=== PATIENT | male | born 1965 | race Two or more races ===

== ENCOUNTER → 2021-10-03 | Outpatient (CLI) | payer BC ==
[2014-10-06 13:31] VITALS: BP 168/89
[~2021-10-03] MED LIST: CYCL10TA19 PO; GEMF-24 PO; INDO50CA15 PO; LEVO200T5 PO; OXYC1TAB15 PO; SITA1TAB11 PO
[2021-10-03 09:29] LABS: BASO # 0.1 x10^3/uL (0.0-0.2); BASO % 1 % (0-3); EOS # 0.2 x10^3/uL (0.0-0.7); EOS % 3 % (0-3); HEMATOCRIT 51.8 % (39.0-53.0); HEMOGLOBIN 17.2 g/dL (13.0-17.5); LYMPH # 2.3 x10^3/uL (1.0-4.8); LYMPH % 27 % (24-48); MEAN CORPUSCULAR HEMOGLOBIN 28 pg (25-35); MEAN CORPUSCULAR HGB CONC 33 g/dL (31-37); MEAN CORPUSCULAR VOLUME 85 fL (79-100); MONO # 0.4 x10^3/uL (0.0-1.1); MONO % 5 % (0-9); NEUT # 5.6 x10^3uL (1.8-7.7); NEUT % 65 % (31-73); PLATELET COUNT 221 x10^3/uL (140-400); RED BLOOD COUNT 6.11 x10^6/uL (4.30-5.70); RED CELL DISTRIBUTION WIDTH 15.5 % (11.5-14.5); WHITE BLOOD COUNT 8.6 x10^3/uL (4.0-11.0)
[2021-10-03 09:32] LABS: ALBUMIN 4.2 g/dL (3.4-5.0); ALBUMIN/GLOBULIN RATIO 1.1 (1.0-1.7); CALCIUM 9.2 mg/dL (8.5-10.1); CREATININE 1.2 mg/dL (0.7-1.3); GFR 62.4; POTASSIUM 4.6 mmol/L (3.5-5.1); TOTAL BILIRUBIN 0.4 mg/dL (0.2-1.0)
--- NOTE | 2021-10-03 12:16 | RAD ---
INDICATION: Reason: RUQ PAIN X3 WEEKS / Spl. Instructions: / History: COMPARISON: None. TECHNIQUE: Grayscale and color ultrasound images obtained through the abdomen. FINDINGS: Pancreas: Largely obscured by overlying structures. Liver: Mildly echogenic Gallbladder: No definite stones or wall thickening. Common Bile Duct: Not dilated. Right Kidney: No hydronephrosis. Aorta/IVC: Visualized portion unremarkable. IMPRESSION: * Liver is mildly echogenic. Nonspecific but can be seen with mild fatty infiltration. Electronically signed by: Jesus Dietz MD (10/03/2021 12:14 PM) [id number]
[2021-10-04 00:07] LABS: HEMOGLOBIN A1C 9.5 % (4.8-5.6)
== END ==
LOC: US 08:23
PROVIDERS: ATTEND Physician Assistant Medical
DX: R10.11 Right upper quadrant pain (principal)
CPT/HCPCS: 36415; 76705; 80053; 83036; 85025

== ENCOUNTER → 2021-10-10 | Outpatient (CLI) | payer BC ==
[2014-10-06 13:31] VITALS: BP 168/89
--- NOTE | 2021-10-10 10:34 | RAD ---
Exam: CT abdomen/pelvis without intravenous contrast Indication: Right upper quadrant pain and swelling. Pain goes up when eating Comparison: Right upper ultrasound 10/03/2021 Technique: Helical CT imaging performed of the abdomen and pelvis without the use of intravenous cont rast. Sagittal and coronal reformats were obtained. One or more of the following individualized dose reduction techniques were utilized for this examinat ion: 1. Automated exposure control 2. Adjustment of the mA and/or kV according to patient size 3. Use of iterative reconstruction technique. Findings: Inherently limited evaluation without intravenous contrast. Lower chest: Lung bases are clear. The heart is normal in size. Liver: Normal noncontrast appearance of the liver. Gallbladder/Biliary Tree: Gallbladder is mildly distended, unchanged. There is cholelithiasis. Bile d ucts are normal. Pancreas: Normal Spleen: No splenomegaly. Adrenal Glands: Normal. Kidneys/Ureters/Bladder: Normal. No hydronephrosis or urolithiasis. Reproductive Organs: The prostate gland is mildly enlarged. Stomach, small bowel, and colon: The stomach and small bowel are normal. There is mild sigmoid divert iculosis. The appendix is not clearly identified. Vasculature: No aortic aneurysm. Lymph Nodes: No lymphadenopathy. Peritoneum and retroperitoneum: No free fluid or free air. Bones: There is 4 mm anterolisthesis of L5 on S1 related to severe facet arthrosis. Mild degenerative disc disease at L5-S1 with severe bilateral foraminal narrowing. Miscellaneous: None IMPRESSION: 1. Cholelithiasis with mildly distended gallbladder. 2. Mildly enlarged prostate gland. 3. Mild sigmoid diverticulosis. 4. Grade 1 spondylolisthesis at L5-S1 resulting in severe bilateral foraminal narrowing. Electronically signed by: Prudence Ash MD (10/10/2021 10:31 AM) [id number]
== END ==
LOC: CT 07:30
PROVIDERS: ATTEND Physician Assistant Medical
DX: K57.30 Diverticulosis of large intestine without perforation or abscess without bleeding (principal); K80.20 Calculus of gallbladder without cholecystitis without obstruction; N40.0 Benign prostatic hyperplasia without lower urinary tract symptoms; K82.8 Other specified diseases of gallbladder; M51.37 Other intervertebral disc degeneration, lumbosacral region; M48.07 Spinal stenosis, lumbosacral region; M47.817 Spondylosis without myelopathy or radiculopathy, lumbosacral region; M43.17 Spondylolisthesis, lumbosacral region
CPT/HCPCS: 74176